=== PATIENT | male | born 1990 | race Caucasian/White ===

== ENCOUNTER → 2017-01-24 22:55 | Emergency (ER) | payer OTHER ==
[~2017-01-24 22:55] MED LIST: ALBUTEROL17 GM INH; AMOXICILLIN PO; COLCRYS0.6 MG PO; DICLOFENAC PO; FISH OIL 1,0001 CAP PO; IBUPROFEN800 MG PO; INDOMETHACIN50 MG PO; KEFLEX500 MG PO; LOPID600 MG PO; NAPROXEN PO; NO MEDICATIONS; PEN-VEE K PO; PHENERGAN25 MG PO; PREDNISONE PO; PRILOSEC20 MG PO; PROVENTIL INH0.5 ML HHN; SODIUM CHLORIDE5 M1 INH; TETRACYCLINE PO; TUSSI ORGANIDI PO; TYLENOL #3 PO; VICODIN 5/500 T1 TAB PO; VICODIN PO; ZITHROMAX1 G/PKT PO; ZOFRAN PO; ZYRTEC PO; [UNRECOGNIZED DRUG - REMARK] PO
== END | disposition left against medical advice (07) ==
LOC: CED 22:55
DX: Z53.21 Procedure and treatment not carried out due to patient leaving prior to being seen by health care provider (principal)

== ENCOUNTER 2017-01-27 10:24 | Emergency (ER) | payer OTHER | END 2017-01-27 10:35 | disposition home or self-care (01) | LOC: CFTX 10:24 | DX: M10.9 Gout, unspecified (principal); E78.5 Hyperlipidemia, unspecified; Z98.890 Other specified postprocedural states; Z88.2 Allergy status to sulfonamides | CPT/HCPCS: 96372; 99283; J1885 ==